=== PATIENT | male | born 2000 | race Caucasian/White ===

== ENCOUNTER 2021-02-12 14:31 | Emergency (ER) | payer OTHER ==
[~2021-02-12] VITALS: Ht 170.2 cm; Wt 61.2 kg
[2021-02-12 14:35] VITALS: BP 115/73; Ht 170.2 cm; Wt 61.2 kg
== END 2021-02-12 15:13 ==
LOC: ED 14:31
DX: Z02.89 Encounter for other administrative examinations (principal)